=== PATIENT | female | born 1990 | race Caucasian/White ===

== ENCOUNTER 2021-09-27 08:14 | Observation (INO) ==
[2021-09-27] MEDS ORDERED: ONDANSETRON 4 MG ODT TABLET SL ONE (08:26)
--- NOTE | 2021-09-27 08:26 | Emergency Department Note ---
HPI General Chief complaint: Nausea/Vomiting/Diarrhea Stated complaint: nausea Time Seen by Provider: 09/27/21 08:26 Source: patient Mode of arrival: ambulatory History of Present Illness HPI Narrative: Narrative: Patient is a 31-year-old female with no significant past medical history presents to the emergency department due to nausea and vomiting in . Patient states that she is approximately 8 weeks . She states that she has had nausea and vomiting for weeks, but that this became significant this morning. 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 She denies any symptoms aside from nausea vomiting. Related Data Previous Rx's Medication Instructions Recorded escitalopram oxalate 20 mg tablet 20 mg PO QDAY #30 tabs 08/26/21 ondansetron 8 mg disintegrating 8 mg PO Q12H PRN nausea and 09/28/21 tablet vomiting #14 tabs Allergies Allergy/AdvReac Type Severity Reaction Status Date / Time No Known Drug Allergies Allergy Verified 09/27/21 08:17 Review of Systems ROS ROS Narrative: Narrative: Constitutional: Denies fever or weakness Eyes: Denies eye pain or vision change ENT ED: Denies throat pain, hearing loss or rhinorrhea Cardiovascular: Denies chest pain, dyspnea on exertion, orthopnea or edema Respiratory: Denies shortness of breath or cough Gastrointestinal: Reports nausea and vomiting; Denies abdominal pain, diarrhea, constipation, hematochezia or melena Musculoskeletal: Denies back pain or myalgia Integumentary: Denies rash or lesions Neurological: Denies headache, weakness, numbness, confusion, abnormal gait or dizziness Psychiatric: Denies anxiety, suicidal thoughts or homicidal thoughts Endocrine: Denies fatigue or polyuria Hematological/Lymphatic: Denies easy bleeding or easy bruising PFS Narrative Patient History Narrative: Narrative: Medical/Surgical/Family History All Active Problems Hyperemesis gravidarum (Acute) (Acute) Panic disorder without agoraphobia (Acute) Complicated bereavement (Acute) Chronic post-traumatic stress disorder (PTSD) (Acute) Suicide attempt (Acute) URI (upper respiratory infection) (Acute) Anxiety with depression (Acute) Medical History Suicide attempt Age 18 and 30 Age 30 suicide attempt by overdose after miscarriage while being at 4 months 02/18/2021 denies suicidal thoughts or thoughts of self-harm Surgical History H/O dilation and curettage Dr. Sarkar, 4 months miscarriage Hx of tonsillectomy Family History Other No pertinent family history Social History Smoking Status: Never smoker Alcohol Intake Frequency: a few times a week Substance Use: marijuana Exam Narrative Narrative: Narrative: General General appearance: Present alert and in no apparent distress; Absent anxious, appears intoxicated or sleepy Head Head: Present atraumatic and normocephalic Eye Eye: Present PERRL, EOMI and visual tillman intact; Absent scleral icterus or nystagmus ENT ENT: Present mucous membranes moist; Absent nasal congestion Neck Neck: Present full ROM; Absent tenderness Chest Chest: Present normal inspection and symmetric chest wall rise; Absent tenderness Respiratory Respiratory: Present normal lung sounds bilaterally; Absent respiratory distress or accessory muscle use Cardiovascular Cardiovascular: Present regular rate, normal rhythm and normal heart sounds Adbominal Abdominal: Present soft and normal bowel sounds; Absent distention or tenderness Extremities Extremities: Present normal inspection and full ROM; Absent tenderness Back Back: Present normal inspection and full ROM; Absent tenderness Neurological Neurological: Present alert and oriented X3 Psychiatric Psychiatric: Present normal affect and normal mood Skin Skin: Present warm (WNL), dry and normal color Course Vital Signs Vital signs: Vital Signs Temperature 96.7 F L 09/27/21 08:15 Pulse Rate 75 09/27/21 08:15 Respiratory Rate 18 09/27/21 08:15 Blood Pressure 145/89 09/27/21 08:15 Pulse Oximetry (%) 100 09/27/21 08:15 Oxygen Delivery Method 09/27/21 08:15 Temperature 98.4 F 09/28/21 07:52 Pulse Rate 64 09/28/21 07:52 Respiratory Rate 16 09/28/21 07:52 Blood Pressure 97/59 09/28/21 07:52 Pulse Oximetry (%) 97 09/28/21 07:52 Oxygen Delivery Method 09/28/21 07:52 MDM MDM Narrative Medical decision making narrative: Narrative: Patient is a 31-year-old female who presents to the emergency department due to nausea and vomiting in . It is possible that this is due to the given absence of any other symptoms. Viral infection or bacterial infection gastroenteritis is also possible, but given absence of any other symptoms including absence of diarrhea this is less likely. We have given patient 2 doses of Zofran without improvement in symptoms. We have given patient another dose of antinausea medication and Hydramine with minimal response. We gave patient a scopolamine patch with minimal response. We have given a liter of normal saline. Because patient continues to have nausea and vomiting I spoke to Dr. Emerson with the hospitalist team and he has agreed to see and evaluate this patient for admission. Lab Data Result diagrams: 09/27/21 09:00 09/28/21 05:21 Labs: Lab Results 09/27/21 09/27/21 Range/Units 09:00 09:00 WBC 11.5 H (4.5-11.0) K/mcL RBC 4.72 (3.59-5.38) M/mcL Hgb 13.8 (11.2-15.7) g/dL Hct 39.6 (34.1-44.9) % MCV 83.9 (80.0-100.0) fL MCH 29.2 (26.0-34.0) pg MCHC 34.8 (31.0-36.0) g/dL RDW 12.4 (11.5-14.5) % Plt Count 306 (140-440) K/mcL MPV 9.8 (7.4-10.4) fL Immature Gran % (Auto) 0.3 (0.0-0.5) % Neut % (Auto) 65.3 (38.0-78.0) % Lymph % (Auto) 26.7 (15.5-49.0) % [place] % (Auto) 6.2 (1.0-12.0) % Eos % (Auto) 1.0 (0.0-7.0) % Baso % (Auto) 0.5 (0.0-2.0) % Lymph # (Auto) 3.08 (1.50-4.80) K/mcL [place] # (Auto) 0.72 (0.10-0.90) K/mcL Eos # (Auto) 0.11 (0.00-0.70) K/mcL Baso # (Auto) 0.06 (0.00-0.30) K/mcL Immature Gran # 0.04 (0.00-0.05) K/mcl Absolute Neutrophils 7.57 (1.80-8.00) K/mcL Sodium 135 (133-145) mmol/L Potassium 3.9 (3.3-5.1) mmol/L Chloride 104 (96-108) mmol/L Carbon Dioxide 17 L (22-30) mmol/L Anion Gap 14.0 (8.0-16.0) BUN 7 (6-20) mg/dL Creatinine 0.5 L (0.6-1.1) mg/dL GFR Calculation 130 Glucose 117 H (70-105) mg/dL Calcium 9.1 (8.6-10.4) mg/dL Total Bilirubin 0.3 (0.1-1.0) mg/dL AST 14 (<32) U/L ALT 12 (<40) U/L Alkaline Phosphatase 57 (39-117) U/L Total Protein 7.3 (5.9-8.4) gm/dL Albumin 4.2 (3.2-5.2) gm/dL Globulin 3.1 (2.2-3.7) gm/dL Albumin/Globulin Ratio 1.4 (1.0-2.3) Lipase 21 (7-60) U/L HCG Beta Subunit 28082.0 mIU/mL Discharge Plan Patient/Caregiver Discharge Instructions Pt seen by BOOT LINER MAKER/PA only: No Activity: increase activity as tolerated Patient Disposition: Xfer As Inpt ([facility]) Condition: Fair Discharge Date/Time: 09/27/21 14:47 Discharge Location: [facility] Inpatient Discharge Comment: W/c to [facility]
[2021-09-27] MEDS ORDERED: 0.9 % SODIUM CHLORIDE 1,000 ML IV ONE (08:54)
[2021-09-27] MEDS ORDERED: ONDANSETRON 4 MG/2 ML VIAL IV ONE (09:29)
[2021-09-27 09:38] LABS: Basophils # (Auto) 0.06 K/mcL (0.00-0.30); Basophils % (Auto) 0.5 % (0.0-2.0); Eosinophils # (Auto) 0.11 K/mcL (0.00-0.70); Hematocrit 39.6 % (34.1-44.9); Hemoglobin 13.8 g/dL (11.2-15.7); Lymphocytes # (Auto) 3.08 K/mcL (1.50-4.80); Lymphocytes % (Auto) 26.7 % (15.5-49.0); Mean Cell Volume 83.9 fL (80.0-100.0); Mean Corpuscular HGB Conc 34.8 g/dL (31.0-36.0); Mean Platelet Volume 9.8 fL (7.4-10.4); Monocytes # (Auto) 0.72 K/mcL (0.10-0.90); Monocytes % (Auto) 6.2 % (1.0-12.0); Neutrophils % (Auto) 65.3 % (38.0-78.0); Platelet Count 306 K/mcL (140-440); RBC 4.72 M/mcL (3.59-5.38); Red Cell Distribution Width 12.4 % (11.5-14.5); WBC 11.5 K/mcL (4.5-11.0)
[2021-09-27] MEDS ORDERED: ONDANSETRON 4 MG/2 ML VIAL ONE (09:39)
[2021-09-27] MEDS ORDERED: METOCLOPRAMIDE 10 MG/2 ML VIAL IV ONE (10:16)
[2021-09-27] MEDS ORDERED: diphenhydrAMINE 50 MG/ML VIAL IV ONE (10:16)
[2021-09-27 10:18] LABS: ALT/SGPT 12 U/L (<40); AST/SGOT 14 U/L (<32); Albumin 4.2 gm/dL (3.2-5.2); Albumin/Globulin Ratio 1.4 (1.0-2.3); Alkaline Phosphatase 57 U/L (39-117); Bilirubin,Total 0.3 mg/dL (0.1-1.0); Blood Urea Nitrogen 7 mg/dL (6-20); Calcium 9.1 mg/dL (8.6-10.4); Carbon Dioxide 17 mmol/L (22-30); Chloride 104 mmol/L (96-108); Globulin 3.1 gm/dL (2.2-3.7); Glomerular Filtration Rate 130; Glucose 117 mg/dL (70-105)
[2021-09-27] MEDS ORDERED: SCOPOLAMINE 1 PATCH PATCH TOPICAL ONE (11:17)
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
[2021-09-27] MEDS ORDERED: diphenhydrAMINE 50 MG/ML VIAL IV PRN (14:44)
[2021-09-27] MEDS ORDERED: ONDANSETRON 4 MG/2 ML VIAL IV PRN (14:44)
[2021-09-27] MEDS ORDERED: PROCHLORPERAZINE 10 MG/2 ML VIAL IV PRN (14:44)
[2021-09-27] MEDS: LACTATED RINGERS 1,000 ML IV SCH (14:49)
[2021-09-27] MEDS: 0.9 % SODIUM CHLORIDE 10 ML SYRINGE IV SCH ×3 (14:53→20:42)
[2021-09-27] MEDS: METOCLOPRAMIDE 10 MG/2 ML VIAL IV PRN (18:42)
[2021-09-27] MEDS: DOCUSATE SODIUM 100 MG CAPSULE PO SCH (20:42)
[2021-09-27] MEDS ORDERED: SENNOSIDES 1 TABLET PO SCH (21:00)
[2021-09-28] MEDS: LACTATED RINGERS 1,000 ML IV SCH ×2 (01:06→11:01)
[2021-09-28] MEDS: METOCLOPRAMIDE 10 MG/2 ML VIAL IV PRN (04:51)
[2021-09-28] MEDS: 0.9 % SODIUM CHLORIDE 10 ML SYRINGE IV SCH (05:44)
[2021-09-28 06:52] LABS: Blood Urea Nitrogen 6 mg/dL (6-20); Calcium 8.1 mg/dL (8.6-10.4); Carbon Dioxide 20 mmol/L (22-30); Chloride 105 mmol/L (96-108); Glomerular Filtration Rate 140; Glucose 90 mg/dL (70-105)
--- NOTE | 2021-09-28 09:06 | Discharge Summary ---
Discharge Provider Provider IMPORTANT FOLLOW-UP INFORMATION FOR PCP: 1. F/u with OB Patient information: Note initiated : 09/28/21 at 9:05 am Service Date, if different from initiated Date: [] Patient: Deandra Kasper 31 y/o F admitted on 09/27/21 for nausea. Chief Complaint: [] Date of admission: 09/27/21 14:40 Discharge date: 09/28/21 Primary care physician: Nikita Ritchie MD Admitting clinician: Colin Ramirez Consults: 09/27/21 Consult to Physician [CONS] Stat Comment: Consulting Provider: Colin Ramirez Reason For Exam: Physician to Consult Attending physician on discharge: Colin Ramirez COURSE Hospital Course Hospital course: Chief Complaint: [Nausea and vomiting] 31-year-old female who presents to the hospital with intractable nausea. She states that her symptoms began this morning. She is 8 weeks . She states that she has been previously twice however has 1 child. She has never had intractable nausea to this extent. She decided to come to the hospital for further management and evaluation. The ER physician spoke with OB who did recommend possible transfer to [facility]. On presentation she was hemodynamically stable and afebrile. The hospitalist service was asked admit the patient for further management and evaluation for hyperemesis gravidarum. Hospital course: The patient did quite well with IV Compazine, IV Benadryl, and IV metoclopramide. She was also started on LR 100 cc an hour while she was kept NPO. Her symptoms resolved within 24 hours and she is going to be discharged home today. She is in agreement with the discharge plan. She will be discharged on p.o. Zofran disintegrating tablets and follow-up with her primary care physician and [employer]. Discharge diagnosis: Hyperemesis gravidarum Time Spent with Patient Time attestation: Total time spent providing and/or coordinating discharge services: Time spent: Greater than 30 minutes EXAM Constitutional Vitals: Temp Pulse Resp BP Pulse Ox O2 Del Method 98.4 F 64 16 97/59 97 09/28/21 07:52 09/28/21 07:52 09/28/21 07:52 09/28/21 07:52 09/28/21 07:52 09/28/21 07:52 General appearance: average body habitus Head Head exam: Present atraumatic, normal inspection and normocephalic Eye Eye exam: Present EOMI, normal appearance and PERRL; Absent conjunctival injection ENT ENT exam: Present normal exam; Absent mucous membranes dry Neck Neck exam: Present full ROM; Absent lymphadenopathy Respiratory Respiratory exam: Present normal respiratory exam and CTAB; Absent decreased breath sounds, respiratory distress or wheezes Cardiovascular Cardiovascular exam: Present normal rate and rhythm and RRR; Absent JVD GI/Abdominal GI/Abdominal exam: Present normal bowel sounds and soft; Absent diminished bowel sounds, distended, guarding, mass, rebound or tenderness Neurological Exam Neurological exam: Present alert, CN II-XII intact and oriented X3 Psychiatric Psychiatric exam: Present normal affect and normal mood Skin Skin exam: Present intact and warm; Absent erythema, pallor, petechiae or rash Discharge Data Data Completed and Pending Labs on day of discharge: Labs from last 24 hours 09/28/21 09/27/21 09/27/21 05:21 09:00 09:00 WBC 11.5 H RBC 4.72 Hgb 13.8 Hct 39.6 MCV 83.9 MCH 29.2 MCHC 34.8 RDW 12.4 Plt Count 306 MPV 9.8 Immature Gran % (Auto) 0.3 Neut % (Auto) 65.3 Lymph % (Auto) 26.7 [place] % (Auto) 6.2 Eos % (Auto) 1.0 Baso % (Auto) 0.5 Lymph # (Auto) 3.08 [place] # (Auto) 0.72 Eos # (Auto) 0.11 Baso # (Auto) 0.06 Immature Gran # 0.04 Absolute Neutrophils 7.57 Sodium 135 135 Potassium 3.1 L 3.9 Chloride 105 104 Carbon Dioxide 20 L 17 L Anion Gap 10.0 14.0 BUN 6 7 Creatinine 0.4 L 0.5 L GFR Calculation 140 130 Glucose 90 117 H Calcium 8.1 L 9.1 Total Bilirubin 0.3 AST 14 ALT 12 Alkaline Phosphatase 57 Total Protein 7.3 Albumin 4.2 Globulin 3.1 Albumin/Globulin Ratio 1.4 Lipase 21 HCG Beta Subunit 98522.0 Discharge Plan Patient/Caregiver Discharge Instructions Activity: increase activity as tolerated Diet: Clear Liquid Prescriptions: New ondansetron 8 mg tablet,disintegrating 8 mg PO Q12H PRN (Reason: nausea and vomiting) Qty: 14 0RF Continued escitalopram oxalate 20 mg tablet 20 mg PO QDAY Qty: 30 1RF Follow Up Plan Follow up with: Nikita Ritchie MD [Primary Care Provider] - Patient Disposition: Home, Self-Care Prognosis: Fair Rehab Potential: Good I certify that the patient requires SNF services: No Overall status at discharge: patient is progressing back to baseline Discharge Orders: Discharge Order (Routine); Ordered 09/28/21 Ordered By: Colin GUNDERSON VTE Deep Vein Thrombosis/Pulmonary Embolism Present on Admission: No
[2021-09-28] MEDS: DOCUSATE SODIUM 100 MG CAPSULE PO SCH (10:30)
== END 2021-09-28 12:05 | disposition home or self-care (01) ==
LOC: MEDSUR 08:14 → ED 08:14 → MEDSUR 14:47
PROVIDERS: ADMIT Student in an Organized Health Care Education/Training Program; ATTEND Student in an Organized Health Care Education/Training Program

== ENCOUNTER 2022-11-20 09:45 | Observation (INO) ==
[2022-11-20] MEDS ORDERED: IOPAMIDOL 100 ML BOTTLE IV ONE (09:46)
[2022-11-20] MEDS ORDERED: KETOROLAC 30 MG/ML VIAL IV ONE (10:13)
[2022-11-20] MEDS ORDERED: ONDANSETRON 4 MG/2 ML VIAL IV PRN (10:13)
[2022-11-20] MEDS ORDERED: 0.9 % SODIUM CHLORIDE 1,000 ML IV ONE (10:13)
[2022-11-20] MEDS ORDERED: FAMOTIDINE/PF 20 MG/2 ML VIAL IV ONE (10:20)
[2022-11-20 10:48] LABS: POC Calcium, Ionized 1.07 (1.16-1.32); POC Creatinine 0.6 (0.6-1.2); POC Potassium 3.4 (3.3-5.1)
[2022-11-20 11:50] LABS: Basophils # (Auto) 0.06 K/mcL (0.00-0.30); Basophils % (Auto) 0.3 % (0.0-2.0); Eosinophils # (Auto) 0.07 K/mcL (0.00-0.70); Eosinophils % (Auto) 0.4 % (0.0-7.0); Hematocrit 40.2 % (34.1-44.9); Hemoglobin 13.1 g/dL (11.2-15.7); Lymphocytes # (Auto) 1.08 K/mcL (1.50-4.80); Lymphocytes % (Auto) 6.1 % (15.5-49.0); Mean Cell Volume 83.4 fL (80.0-100.0); Mean Corpuscular HGB Conc 32.6 g/dL (31.0-36.0); Mean Platelet Volume 10.1 fL (8.8-12.5); Monocytes # (Auto) 1.51 K/mcL (0.10-0.90); Monocytes % (Auto) 8.5 % (1.0-12.0); Neutrophils % (Auto) 84.3 % (38.0-78.0); Platelet Count 300 K/mcL (140-440); RBC 4.82 M/mcL (3.59-5.38); Red Cell Distribution Width 13.7 % (11.5-14.5); WBC 17.7 K/mcL (4.5-11.0)
[2022-11-20 12:21] LABS: ALT/SGPT 35 U/L (<40); AST/SGOT 54 U/L (<32); Albumin 4.3 gm/dL (3.2-5.2); Alkaline Phosphatase 96 U/L (39-117); Bilirubin,Direct 0.3 mg/dL (<0.3); Bilirubin,Total 0.9 mg/dL (0.1-1.0)
[2022-11-20] MEDS ORDERED: PIPERACILLIN SODIUM/TAZOBACTAM 3.375 GM in DEXTROSE 5% IN WATER 50 ML IV ONE (12:30)
[2022-11-20] MEDS: 0.9 % SODIUM CHLORIDE 1,000 ML IV SCH (13:28)
[2022-11-20] MEDS ORDERED: fentaNYL 100 MCG/2 ML VIAL IV PRN (19:11)
[2022-11-20] MEDS: PIPERACILLIN SODIUM/TAZOBACTAM 3.375 GM in DEXTROSE 5% IN WATER 50 ML IV SCH ×2 (19:15→23:11)
[2022-11-20] MEDS ORDERED: ACETAMINOPHEN 1,000 MG/100 ML BAG IV PRN ×2 (22:58→23:08)
[2022-11-20] MEDS ORDERED: ACETAMINOPHEN 1,000 MG/100 ML BAG IV ONE (23:10)
[2022-11-21] MEDS: 0.9 % SODIUM CHLORIDE 1,000 ML IV SCH ×3 (04:42→14:15)
[2022-11-21] MEDS: PIPERACILLIN SODIUM/TAZOBACTAM 3.375 GM in DEXTROSE 5% IN WATER 50 ML IV SCH ×2 (04:42→12:55)
[2022-11-21 06:25] LABS: Basophils # (Auto) 0.06 K/mcL (0.00-0.30); Basophils % (Auto) 0.8 % (0.0-2.0); Eosinophils % (Auto) 2.6 % (0.0-7.0); Hematocrit 35.1 % (34.1-44.9); Hemoglobin 11.2 g/dL (11.2-15.7); Lymphocytes # (Auto) 2.23 K/mcL (1.50-4.80); Lymphocytes % (Auto) 28.8 % (15.5-49.0); Mean Corpuscular HGB Conc 31.9 g/dL (31.0-36.0); Mean Platelet Volume 9.9 fL (8.8-12.5); Monocytes # (Auto) 0.62 K/mcL (0.10-0.90); Neutrophils % (Auto) 59.5 % (38.0-78.0); Platelet Count 268 K/mcL (140-440); RBC 4.13 M/mcL (3.59-5.38); Red Cell Distribution Width 13.7 % (11.5-14.5); WBC 7.8 K/mcL (4.5-11.0)
[2022-11-21 06:41] LABS: ALT/SGPT 34 U/L (<40); AST/SGOT 31 U/L (<32); Albumin 3.4 gm/dL (3.2-5.2); Albumin/Globulin Ratio 1.3 (1.0-2.3); Alkaline Phosphatase 72 U/L (39-117); Bilirubin,Direct < 0.2 mg/dL (0-0.3); Bilirubin,Total 0.5 mg/dL (0.1-1.0); Blood Urea Nitrogen 8 mg/dL (6-20); Calcium 7.4 mg/dL (8.6-10.4); Carbon Dioxide 20 mmol/L (22-30); Chloride 106 mmol/L (96-108); Globulin 2.6 gm/dL (2.2-3.7); Glomerular Filtration Rate 129; Glucose 84 mg/dL (70-105); Lactate Dehydrogenase 139 U/L (135-225); Phosphorous 2.5 mg/dL (2.5-4.5); Triglycerides 123 mg/dL (<150)
== END 2022-11-21 14:15 | disposition home or self-care (01) ==
LOC: ED 09:45 → MEDSUR 17:20 → INTOOBSV 17:20
PROVIDERS: ADMIT Family Medicine Adult Medicine; ATTEND Family Medicine Adult Medicine